=== PATIENT | female | born 1995 | race Caucasian/White ===

== ENCOUNTER 2019-03-02 17:13 | Emergency (ER) | payer OTHER, MEDICAID ==
[~2019-03-02] VITALS: Ht 165.1 cm; Wt 52.2 kg
[2019-03-02 18:04] LABS: URINE BILIRUBIN NEGATIVE (Negative); URINE BLOOD TRACE (Negative); URINE CLARITY CLEAR; URINE COLOR YELLOW; URINE GLUCOSE-RANDOM NEGATIVE (Negative); URINE KETONES TRACE (Negative); URINE LEUKOCYTES-REFLEX 1+ (Negative); URINE NITRITE-REFLEX NEGATIVE (Negative); URINE PROTEIN NEGATIVE (Negative); URINE SPECIFIC GRAVITY 1.025 (1.005-1.030)
[2019-03-02 18:06] VITALS: BP 115/87
[2019-03-02 18:17] LABS: SQUAMOUS >10 Many /LPF (0-3)
[2019-03-02 18:18] LABS: BACTERIA-REFLEX 1-9 Few /HPF (None Seen); CASTS None Seen /LPF (None Seen); CRYSTALS None Seen /LPF (None Seen); MUCUS 0-3 Light strn/LPF (None Seen); URINE RBC 0-2 Rare /HPF (0-2); URINE WBC-REFLEX 6-15 Few /HPF (0-5)
== END 2019-03-02 18:07 | disposition home or self-care (01) ==
LOC: M.ERS 17:13
PROVIDERS: Physician Assistant
DX: Z20.2 Contact with and (suspected) exposure to infections with a predominantly sexual mode of transmission (principal); J45.909 Unspecified asthma, uncomplicated

== ENCOUNTER 2019-04-26 22:14 | Emergency (ER) | payer OTHER, MEDICAID ==
[~2019-04-26] VITALS: Ht 154.9 cm; Wt 72.6 kg
[2019-04-26] MEDS ORDERED: PRENATAL PO (22:31)
[2019-04-26 22:43] LABS: ABSOLUTE EOSINOPHILS 0.1 thou/uL (0.0-0.7); ABSOLUTE LYMPHOCYTES 2.8 thou/uL (0.8-5.3); ABSOLUTE MONOCYTES 0.4 thou/uL (0.0-1.2); ABSOLUTE NEUTROPHILS 3.7 thou/uL (1.6-8.1); BASOPHILS 0.6 %; HEMATOCRIT 37.3 % (37.0-47.0); HEMOGLOBIN 12.5 gm/dL (12.0-15.0); LYMPHOCYTES 40.1 %; MCH 30.3 pg (26.0-34.0); MCHC 33.6 g/dL (28.0-37.0); MCV 90.1 fL (80.0-100.0); MONOCYTES 5.1 %; MPV 7.4 fl. (7.2-11.1); NUCLEATED RBCS 0 /100WBC; PLATELET COUNT* 295 thou/uL (150-400); POLYS 53.2 %; RBC 4.14 mil/uL (4.20-5.00); RDW-CV 12.9 % (10.5-14.5)
[2019-04-26 22:44] LABS: URINE BILIRUBIN NEGATIVE (Negative); URINE BLOOD 3+ (Negative); URINE CLARITY CLEAR; URINE COLOR YELLOW; URINE GLUCOSE-RANDOM NEGATIVE (Negative); URINE KETONES NEGATIVE (Negative); URINE LEUKOCYTES-REFLEX TRACE (Negative); URINE NITRITE-REFLEX NEGATIVE (Negative); URINE PROTEIN NEGATIVE (Negative); URINE SPECIFIC GRAVITY 1.025 (1.005-1.030); URINE UROBILINOGEN 0.2 E.U./dl (0.2-1.0)
[2019-04-26 22:50] LABS: CALCIUM 8.9 mg/dL (8.5-10.1); CREATININE 0.7 mg/dL (0.6-1.3); MUCUS 0-3 Light strn/LPF (None Seen); POTASSIUM 3.6 mmol/L (3.5-5.1); SQUAMOUS 4-10 Moderate /LPF (0-3)
[2019-04-26 22:51] LABS: BACTERIA-REFLEX None Seen /HPF (None Seen); CASTS None Seen /LPF (None Seen); CRYSTALS None Seen /LPF (None Seen); URINE WBC-REFLEX 0-5 Rare /HPF (0-5)
[2019-04-26 22:54] LABS: ALBUMIN 3.7 g/dL (3.4-5.0); TOTAL BILIRUBIN 0.2 mg/dL (<0.1-1.0); TOTAL PROTEIN 7.1 g/dL (6.4-8.2)
[2019-04-27 01:45] VITALS: BP 104/56
== END 2019-04-27 01:45 | disposition home or self-care (01) ==
LOC: M.ERS 22:14
PROVIDERS: Nurse Practitioner Family
DX: O20.0 Threatened abortion (principal); O99.511 Diseases of the respiratory system complicating pregnancy, first trimester; Z90.49 Acquired absence of other specified parts of digestive tract; Z3A.01 Less than 8 weeks gestation of pregnancy

== ENCOUNTER 2021-02-02 15:36 | Emergency (ER) | payer OTHER ==
[~2021-02-02] VITALS: Ht 154.9 cm; Wt 65.8 kg
[~2021-02-02 15:36] MED LIST: PRENATAL PO
[2021-02-02] MEDS ORDERED: ZOFRAN ODT4 MG PO (16:26)
[2021-02-02 16:41] VITALS: BP 120/68
== END 2021-02-02 16:42 | disposition home or self-care (01) ==
LOC: M.ERS 15:36
DX: B34.9 Viral infection, unspecified (principal); Z20.822 Contact with and (suspected) exposure to COVID-19; J45.909 Unspecified asthma, uncomplicated; Z90.49 Acquired absence of other specified parts of digestive tract

== ENCOUNTER 2021-02-23 12:29 | Emergency (ER) | payer OTHER ==
[~2021-02-23] VITALS: Ht 154.9 cm; Wt 65.8 kg
[~2021-02-23 12:29] MED LIST changes: +ZOFRAN ODT4 MG PO
[2021-02-23 13:55] VITALS: BP 91/72
== END 2021-02-23 13:55 | disposition home or self-care (01) ==
LOC: M.ERS 12:29
DX: S93.692A Other sprain of left foot, initial encounter (principal); J45.909 Unspecified asthma, uncomplicated; Z90.49 Acquired absence of other specified parts of digestive tract; W01.0XXA Fall on same level from slipping, tripping and stumbling without subsequent striking against object, initial encounter; Y93.89 Activity, other specified; Y92.89 Other specified places as the place of occurrence of the external cause; Y99.8 Other external cause status

== ENCOUNTER 2021-04-22 15:13 | Emergency (ER) | payer MEDICAID ==
[~2021-04-22] VITALS: Ht 154.9 cm; Wt 63.5 kg
[2021-04-22] MEDS ORDERED: BENADRYL25 MG PO (15:37)
[2021-04-22] MEDS ORDERED: TYLENOL325 M1 PO ×2 (15:37)
[2021-04-22 16:01] LABS: INFLUENZA A ANTIGEN Negative (Negative); INFLUENZA B ANTIGEN Negative (Negative)
[2021-04-22 16:22] VITALS: BP 129/67
== END 2021-04-22 16:23 | disposition home or self-care (01) ==
LOC: M.ERS 15:13
PROVIDERS: Physician Assistant
DX: J06.9 Acute upper respiratory infection, unspecified (principal); Z20.822 Contact with and (suspected) exposure to COVID-19; J45.909 Unspecified asthma, uncomplicated; Z90.49 Acquired absence of other specified parts of digestive tract